=== PATIENT | male | born 1975 | race American Indian/Alaskan Native ===

== ENCOUNTER 2016-09-19 23:39 | Emergency (ER) | payer OTHER ==
[2016-09-20 00:04] VITALS: BP 123/76
--- NOTE | 2016-09-20 01:01 | Emergency Department Report ---
Chief Complaint: Extremity Injury, Upper Stated Complaint: SHOULDER PAIN Time Seen by Provider: 09/20/16 00:51 - HPI History of Present Illness: Patient here for right shoulder pain. Patient says that he has tendinitis. 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 He said he was seen at [facility] and he did an x-ray and diagnosed him with right shoulder tendinitis. He is complaining of pain 8 out of 10. Patient did not follow-up as recommended. Denies any weakness, numbness or tingling to extremities. - ROS Review of Systems: Systems are negative unless stated in HPI above - Exam Vital Signs: Vital Signs 09/19/16 23:56 Temperature 97.5 F L Pulse Rate 66 Respiratory 18 Rate Blood Pressure 123/76 O2 Sat by Pulse 100 Oximetry Physical Exam: General: This is a 40-year-old male well-nourished well-developed in no acute distress. CV: S1, S2. Regular rate and rhythm. Lungs: Clear to auscultate bilaterally, no rhonchi wheezes or rales. Extremity:No C/C/E. no AC or glenohumeral joint tenderness. No deformities noted to bilateral shoulder. 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 Capillary refill less than 3 seconds. +2 radial and ulnar pulses. No neurovascular compromise. No signs of tendon or ligament injury. MSK: Full range of motion to all extremities, +5/5 strength in extremities. Skin: Clean dry and intact, no rash no lesions Psych: Normal mood and behavior. MSE screening note: Focused history and physical exam performed. Due to findings the following was ordered:TBD ED Medical Decision Making - Medical Decision Making ED course: Patient had x-ray done at [facility] with initial injury and he said there are no fractures or dislocation of her shoulder. He is here reporting that he is having pain and [facility] told him that he had tendinitis and he will need to follow-up with orthopedic doctor. Patient did not follow-up with orthopedic doctor. Patient given Toradol 60 mg IM and Decadron 8 mg IM and emergency room. I instructed him that he will need to follow-up with orthopedic doctor in 2-3 days. Patient shoulder exam normal. Discharged home with prescription for prednisone and Ultram ED Disposition for MSE Clinical Impression: Right shoulder pain Qualifiers: Chronicity: unspecified Qualified Code(s): M25.511 - Pain in right shoulder Disposition: DISCHARGED TO HOME OR SELFCARE Is pt being admited?: No Does the pt Need Aspirin: No Condition: Stable Instructions: Arthralgia (ED) Additional Instructions: Please follow-up with orthopedic doctor as recommended Take medication as prescribed. Prescriptions: Acetaminophen/Codeine [Acetaminophen-Codeine #3 TAB] 1 tab PO Q6H PRN #12 tab PRN Reason: Pain predniSONE [Deltasone] 50 mg PO QAM #5 tab Referrals: PRIMARY CARE, [Primary Care Provider] - 3-5 Days TOY MEYER MD [Staff Physician] - 3-5 Days Forms: Work/School Release Form(ED)
[2016-09-20] MEDS ORDERED: TORADOL IM ONE (01:27)
[2016-09-20] MEDS ORDERED: DECADRON IM STA (01:27)
== END 2016-09-20 01:48 | disposition home or self-care (01) ==
LOC: ED 23:39
DX: M25.511 Pain in right shoulder (principal)
CPT/HCPCS: 96372; 99282; J1100; J1885